=== PATIENT | female | born 1995 | race Caucasian/White ===

== ENCOUNTER 2025-01-24 11:52 | Emergency (ER) | payer OTHER, SELFPAY ==
[2025-01-24 12:01] VITALS: BP 121/85
[2025-01-24 12:30] LABS: Hematocrit 39.8 % (37.0-47.0); Hemoglobin 13.3 g/dL (12.0-16.0); Mean Corp Hgb Conc. 33.4 g/dL (33.0-37.0); Mean Corpuscular Volume 97.1 fL (81.0-99.0); Nucleated Red Blood Cells % 0 %; Platelet Count 216 10^3/uL (130-400); Red Cell Dist. Width 12.2 % (11.5-14.5)
[2025-01-24 12:58] LABS: HCG, Serum Qualitative Screen Negative
[2025-01-24 13:04] LABS: ALT (SGPT) 22 U/L (0-35); AST (SGOT) 29 U/L (14-36); Albumin 4.7 g/dl (3.5-5.0); Alkaline Phosphatase 64 U/L (38-126); Blood Urea Nitrogen 9 mg/dl (7-17); Calcium 10.0 mg/dl (8.4-10.2); Carbon Dioxide 25 mmol/L (22-30); Chloride 104 mmol/L (98-107); Glucose 95 mg/dl (70-99); Potassium 4.5 mmol/L (3.5-5.1); Sodium 134 mmol/L (135-145); Total Protein 7.7 g/dl (6.3-8.2); eGFR > 60.00
[2025-01-24 15:15] VITALS: BP 128/74
[2025-01-24 15:19] VITALS: BMI 21.0
[2025-01-24 16:00] VITALS: BP 116/82
[2025-01-24 16:36] LABS: C-Reactive Protein < 5.00 mg/L (0.0-10.00)
[2025-01-24 16:51] LABS: Vitamin D, 25-OH*** 27.3 ng/mL (30-80)
[2025-01-24 17:00] VITALS: BP 107/67
[2025-01-24 17:21] LABS: Hepatitis C Antibody Negative (Negative)
[2025-01-24 17:41] LABS: Folate 12.2 ng/ml (2.76-20)
--- NOTE | 2025-01-24 18:36 | ED.GENMED ---
History of Present Illness
General
Chief Complaint: Eye Problems
Source: patient
Time Seen by Provider: 01/24/25 15:09
History of Present Illness
History of Present Illness:
Note:
CHIEF COMPLAINT(S)
Muscle weakness, numbness, vision changes, and floaters.
HISTORY OF PRESENT ILLNESS
The patient is a 29-year-old female who presents with complaints of muscle weakness, generalized throughout the body, which she first noticed approximately two months ago. She reports a global weakness, including weakened computer architect strength and episodes
where her knees give out consistently. Additionally, she experiences numbness in her legs and has noted that her symptoms are progressively worsening, feeling particularly exacerbated today.
The patient also reports vision changes, including floaters and a significant decrease in vision clarity, with her vision being 50% worse than three months ago. The floater, which has been present for about three months, has become more pronounced
recently.
She had consulted her general practitioner regarding these symptoms, who suggested testing for lupus, Lyme disease, multiple sclerosis, and possible nutritional deficiencies.
In terms of medications, the patient takes escitalopram. Recent changes in medication included a trial with Prozac and switching to Lexapro. She correlates the timing of her symptoms with a change in medication.
PHYSICAL EXAM
General: Alert, no acute distress.
Skin: Warm, dry.
Head: Normocephalic, atraumatic.
Neck: Supple, trachea midline.
Eyes, Ears, Nose, and Throat: Oral mucosa moist. Pupils are equally reactive to light; anterior chamber normal. No papilledema. Discs sharp
Cardiovascular: Normal peripheral perfusion, No edema. Heart regular with no murmurs.
Respiratory: Respirations are non-labored; lungs clear to auscultation.
Gastrointestinal: Abdomen non-tender and nondistended.
Back: Normal range of motion, normal alignment.
Musculoskeletal: Normal range of motion, normal strength. No clonus, no asterixis, no pronator drift.
Neurological: Alert and oriented to person, place, time, and situation. Normal [id number]-[id number] and [id number]-rv-[id number] testing. No focal neurological deficit observed.
Psychiatric: Cooperative, appropriate mood & affect.
PROBLEM LIST
Acute Problems:
- Generalized muscle weakness.
- Vision changes with floaters.
- Occasional numbness in legs.
Chronic Problems (related to current medications):
- Anxiety/Depression (currently on escitalopram)
PLAN
1. Perform blood tests to rule out anemia, kidney dysfunction, and inflammatory markers.
2. Add additional tests as feasible from the recommendations (e.g., Lupus, Lyme Disease, Multiple Sclerosis markers).
3. Consider an HIV test at patients request.
4. Patient advised the limitations of emergency diagnostics for conditions like multiple sclerosis, emphasizing chronic disease workup should continue with primary care.
5. Consider a CT scan of the head to rule out a structural problem if radiology deems it useful.
6. Referral for outpatient MRI for detailed assessment as chronic symptoms warrant.
7. Discuss with neurology for further consultation and diagnosis.
DIFFERENTIAL DIAGNOSIS
The Differential Diagnosis includes, in no particular order and is not limited to:
- Multiple Sclerosis
- Systemic Lupus Erythematosus
- Lyme Disease
- Nutritional Deficiencies
- Medication side effects (e.g., from escitalopram)
- Human Immunodeficiency Virus (HIV)
- Syphilis
- Rheumatoid Factor Abnormalities
- Brain Tumor or Structural Brain Abnormality
- Chronic Kidney Dysfunction
Disposition:
SUMMARY OF ENCOUNTER
The patient is a 29-year-old female presenting to the emergency department with generalized muscle weakness and vision changes, including floaters, which she has experienced for approximately three months. Multiple laboratory studies were ordered,
and results were grossly reassuring with a normal C-reactive protein (CRP) and normal serology. A fundoscopy exam in the emergency department revealed sharp discs with no papilledema bilaterally, and the patients visual acuity is grossly
unremarkable. My suspicion for multiple sclerosis (MS) or another autoimmune illness is low, but an outpatient MRI of the brain is recommended for further evaluation. Consultations with radiology confirmed that a CT scan would not be beneficial, and
I concur with their assessment. The patient was advised to pursue outpatient follow-up with neurology, ophthalmology, and her primary care physician (PCP). I provided referrals and recommended further diagnostic workup, including the MRI.
PLAN
Recommend outpatient MRI of the brain for further evaluation. Refer the patient to neurology, ophthalmology, and PCP for further assessment and follow-up care.
INDEPENDENT REVIEW OF LABS AND INTERPRETATION OF TESTS
My independent review of the laboratory results indicates a normal C-reactive protein (CRP) and normal serology.
MEDICAL DECISION MAKING
- Number and Complexity of Problems Addressed: Chronic conditions affecting care include vision changes and muscle weakness. Differential diagnosis considered included multiple sclerosis, systemic lupus erythematosus, Lyme disease, nutritional
deficiencies, medication side effects, HIV, syphilis, rheumatoid factor abnormalities, brain tumor or structural brain abnormality, and chronic kidney dysfunction.
- Data:
Category 1: Review of lab tests revealed normal CRP and normal serology.
Category 3: Discussion of management with radiology regarding the utility of CT scan, leading to a consensus that a CT scan would not be helpful.
DIAGNOSIS
- Vision changes with floaters (H53.9)
- Generalized muscle weakness (M62.81)
- Anxiety/Depression (F41.9, given the patients current medication management with escitalopram).
Phy Exam
Physical Exam
Physical Exam:
.
Course
Orders/Labs/Results
Orders:
Orders
01/24/25 12:04
Test Result ONCE
01/24/25 12:20
C-Reactive Protein Urgent
Comment: ADD ON
Complete Blood Count/With Diff Urgent
Comprehensive Metabolic Panel Urgent
Erythrocyte Sed Rate Urgent
Comment: ADD ON
Folate Urgent
Comment: ADD ON
Free T4 Urgent
HCG, Serum Qualitative Screen Urgent
Hepatitis C Antibody Urgent
Comment: ADD ON
TSH Reflex To Free T4 Urgent
Comment: ADD ON
Vitamin D, 25-Oh Urgent
01/24/25 15:15
Vital Signs- Treatment ONCE
Frequency: Once
01/24/25 15:28
Add On- LAB Urgent
Comments:: add on to CMP and CBC
Tests Added?: C-reactive protein, folate, HIV antibody and antigen combination
01/24/25 15:30
Add On- LAB Urgent
Comments:: add on to COMP and CBC
Tests Added?: hcv antibody with reflex to PCR, lyme antibody with reflex, RF,
01/24/25 15:35
Add On- LAB Urgent
Comments:: add on to COMP and CBC
Tests Added?: sed rate, TSH w/ reflex to free t4, vitamin d 25-hydoxy total
01/24/25 17:27
HIV Combo Urgent
Comment: ADD ON
Lyme Progressive Urgent
Rheumatoid Agglutinin Urgent
Abnormal Lab Results
01/24/25
12:20
RBC 4.10 L 10^6/uL
(4.20-5.40)
MCH 32.4 H pg
(27.0-31.0)
Sodium 134 L mmol/L
(135-145)
Total Bilirubin 1.7 H mg/dl
(0.2-1.3)
Vitamin D 25-Hydroxy 27.3 L ng/mL
(30-80)
TSH (Reflex) 0.43 L uIU/ml
(0.47-4.68)
01/24/25 12:20
01/24/25 12:20
Vital Signs
Initial and Last Documented VS:
Initial Vital Signs
Temp Pulse Resp BP Pulse Ox
98 F 112 16 121/85 100
01/24/25 12:01 01/24/25 12:01 01/24/25 12:01 01/24/25 12:01 01/24/25 12:01
Last Documented Vital Signs
Temp Pulse Resp BP Pulse Ox
98 F 90 23 107/67 98
01/24/25 12:01 01/24/25 18:00 01/24/25 18:00 01/24/25 17:00 01/24/25 17:15
*Pulse Oximetry
SaO2: 98
Oxygen Mode of Delivery: Room air
Patient hypoxic: no
*Critical Care Note
Total Time (30-74mins, 75-104mins- exclusive of procedures): Not Applicable
ED Attending Note
-
Portions of this chart may have been created with voice recognition software.� Occasional wrong word or��sound alike� substitutions may have occurred due to the inherent limitations of voice recognition software.
Discharge Plan
Departure
Patient Disposition: Home (Routine Discharge)
Date of Disposition: 01/24/25
Time of Disposition: 18:37
Patient with high blood pressure during this ER visit?: No
Discharge Problem:
Weakness, Floaters in visual field
Referrals:
Sharonda Amaya DO [Family Provider, Family Practice]
[facility] Hartmann [Provider Group]
Alma Burns MD [Non-Admitting Privileges, Psychiatry]
Andrey Perry MD [Active, Neurology]
Activity Restrictions/Additional Instructions:
Please see your doctor in the next 3 to 5 days for follow-up and reevaluation of your lab results and to schedule an outpatient MRI of your brain for further assessment. Please also see ophthalmology in the next 1 week for detailed retinal exam.
Please also follow-up with neurology as discussed. Return immediately for worsening symptoms, focal motor deficits, or any other concerns.
Interventions
Interventions:
*Risk Screen - Suicide Last Done: 01/24/25 12:03
*General Assessment Last Done: 01/24/25 16:00
*Neglect/Abuse Screening Last Done: 01/24/25 12:03
*ED- Fall Risk Assessment Last Done: 01/24/25 16:00
*ED COVID-19 Vaccine History Last Done: 01/24/25 16:00
*ED Influenza Vaccine History Last Done: 01/24/25 16:00
Discharge Date and Time
Print Language: AMHARIC
[2025-01-24 19:15] VITALS: BP 121/78
[2025-01-27 12:26] LABS: Lyme Antibody Screen, EIA Negative (Negative)
[2025-01-27 12:57] LABS: Rheumatoid Agglutinin Less Than 10 IU (<10 IU)
== END 2025-01-24 19:15 | disposition home or self-care (01) ==
LOC: EMR 11:52
PROVIDERS: Emergency Medicine; EMERGENCY PHYSICIAN Emergency Medicine; FAMILY PHYSICIAN Family Medicine
DX: M62.81 Muscle weakness (generalized) (principal); H43.399 Other vitreous opacities, unspecified eye; F41.9 Anxiety disorder, unspecified; F32.A Depression, unspecified
CPT/HCPCS: 99283; 80053; 82306; 82746; 84439; 84443; 84703; 85025; 85652; 86140; 86430; 86618; 86803; 87389